=== PATIENT | male | born 1965 | race Two or more races ===

== ENCOUNTER 2020-12-01 17:04 | Emergency (ER) | payer OTHER ==
[~2020-12-01] VITALS: Ht 185.4 cm; Wt 81.8 kg
[2020-12-01] MEDS ORDERED: LIDOCAINE 1% 10 ML VIAL SQ ONE (18:15)
[2020-12-01] MEDS ORDERED: BACITRACIN 0.9 GM PACKET OINTMENT TP ONE (18:15)
[2020-12-01] MEDS ORDERED: POVIDONE-IODINE 10% 15 ML SOLUTION UD TP ONE (18:15)
[2020-12-01] MEDS ORDERED: ACETAMINOPHEN 500 MG TABLET PO ONE (18:30)
[2020-12-01 20:09] VITALS: BP 138/88
== END 2020-12-01 21:00 | disposition home or self-care (01) ==
LOC: EMS 17:05
DX: S61.211A Laceration without foreign body of left index finger without damage to nail, initial encounter (principal); W26.0XXA Contact with knife, initial encounter; Y93.89 Activity, other specified; Y92.89 Other specified places as the place of occurrence of the external cause; Y99.8 Other external cause status
CPT/HCPCS: 12001; 99282; J3490

== ENCOUNTER 2020-12-03 12:18 | Emergency (ER) | payer OTHER ==
[~2020-12-03] VITALS: Ht 182.9 cm; Wt 81.8 kg
[2020-12-03 12:21] VITALS: BP 148/82
== END 2020-12-03 13:31 | disposition home or self-care (01) ==
LOC: EMS 13:31
DX: S61.201D Unspecified open wound of left index finger without damage to nail, subsequent encounter (principal); X58.XXXD Exposure to other specified factors, subsequent encounter
CPT/HCPCS: 99282; 99283

== ENCOUNTER 2020-12-08 11:57 | Emergency (ER) | payer OTHER ==
[~2020-12-08] VITALS: Ht 185.4 cm; Wt 81.8 kg
[2020-12-08 12:01] VITALS: BP 114/74
== END 2020-12-08 12:28 | disposition home or self-care (01) ==
LOC: EMS 12:04
DX: S61.211D Laceration without foreign body of left index finger without damage to nail, subsequent encounter (principal); Z48.02 Encounter for removal of sutures; W26.0XXD Contact with knife, subsequent encounter
CPT/HCPCS: 99281; Z7502

== ENCOUNTER 2023-03-15 16:44 | Emergency (ER) | payer OTHER ==
[~2023-03-15] VITALS: Ht 182.9 cm; Wt 69.1 kg
[2023-03-15] MEDS ORDERED: IBUPROFEN 400 MG TABLET PO ONE (17:45)
[2023-03-15 18:39] VITALS: BP 140/80; PULSE 86; RESP 18; TEMP 98.2
[2023-03-15] MEDS ORDERED: BACITRACIN 0.9 GM PACKET OINTMENT TP ONE ×2 (20:00→20:01)
[2023-03-15] MEDS ORDERED: IBUP-1492 PO (20:06)
== END 2023-03-15 20:08 | disposition home or self-care (01) ==
LOC: EMS 17:05
DX: S63.501A Unspecified sprain of right wrist, initial encounter (principal); S50.311A Abrasion of right elbow, initial encounter; V98.8XXA Other specified transport accidents, initial encounter; Y93.89 Activity, other specified; Y92.89 Other specified places as the place of occurrence of the external cause; Y99.8 Other external cause status
CPT/HCPCS: 99284; 73080-TC; 73110-TC; Z7502; Z7610

== ENCOUNTER 2023-03-16 07:02 | Emergency (ER) | payer OTHER ==
[~2023-03-16] VITALS: Ht 183.5 cm; Wt 73.6 kg
[~2023-03-16 07:02] MED LIST: IBUP-1492 PO
[2023-03-16 09:20] VITALS: BP 130/75; PULSE 74; RESP 18; TEMP 98.3
== END 2023-03-16 09:40 | disposition home or self-care (01) ==
LOC: EMS 07:03
DX: S63.501A Unspecified sprain of right wrist, initial encounter (principal); M25.521 Pain in right elbow; V19.88XA Pedal cyclist (driver) (passenger) injured in other specified transport accidents, initial encounter; Y93.89 Activity, other specified; Y92.89 Other specified places as the place of occurrence of the external cause; Y99.8 Other external cause status
CPT/HCPCS: 73200; 99284; Z7502